=== PATIENT | female | born 1995 | race Caucasian/White ===

== ENCOUNTER → 2024-10-31 | Outpatient (CLI) | payer OTHER ==
[~2024-10-31] MED LIST: BIRTH CONTROL PO; ESCI20 PO; ISOTRETINOIN PO; Minocycline HC100 MG PO; Oxybutynin Chlo10 MG PO; Zofran Odt4 MG SL; Zofran4 MG PO
[2024-11-02 17:59] LABS: APTIMA MEDIA TYPE Urine; C. TRACHOMATIS BY TMA Negative (Negative); N. GONORRHOEAE BY TMA Negative (Negative); SPECIMEN SOURCE Urine
== END | disposition home or self-care (01) ==
LOC: LAB 09:00 → LAB SHORT 09:00
PROVIDERS: Family Medicine
DX: Z11.3 Encounter for screening for infections with a predominantly sexual mode of transmission (principal)
CPT/HCPCS: 87491; 87591

== ENCOUNTER → 2025-01-21 | Outpatient (CLI) | payer OTHER ==
[2025-01-21 20:02] LABS: Chlamydia Trachomatis Urine NOT DETECTED (NOT DETECT); Neisseria Gonorrhoea Urine NOT DETECTED (NOT DETECT)
== END ==
LOC: LAB 13:40 → LAB SHORT 13:40
PROVIDERS: Family Medicine
DX: Z34.81 Encounter for supervision of other normal pregnancy, first trimester (principal); Z3A.01 Less than 8 weeks gestation of pregnancy
CPT/HCPCS: 87086; 87491; 87591

== ENCOUNTER → 2025-07-23 | Outpatient (CLI) | payer OTHER | END | disposition home or self-care (01) | LOC: LAB SHORT 17:59 → LAB 17:59 | DX: R30.0 Dysuria (principal) | CPT/HCPCS: 87086 ==

== ENCOUNTER 2025-09-04 12:21 | Inpatient (IN) | payer OTHER ==
[~2025-09-04] VITALS: Ht 160 cm; Wt 112.0 kg
[2025-09-04] VITALS (24 sets, daily range): BP systolic 98–146; BP diastolic 56–110
[2025-09-04] MEDS ORDERED: OXYTOCIN/RINGER'S LACTATE 500 ML IV ONE (12:47)
[2025-09-04] MEDS ORDERED: Oxytocin 10 Unit / ML Vial IM PRN (12:50)
[2025-09-04] MEDS ORDERED: FentaNYL 2mcg/ml-Bup 0.1% Epd 250 ML EPI PRN (12:50)
[2025-09-04] MEDS ORDERED: OXYTOCIN/RINGER'S LACTATE 500 ML IV PRN (12:50)
[2025-09-04] MEDS ORDERED: ePHEDrine Sulfate 50 MG/ML 1ML Injection XX PRN (12:50)
[2025-09-04] MEDS ORDERED: Carboprost Tromethamine 250 MCG/ML 1ML Amp IM PRN ×2 (12:50→23:10)
[2025-09-04] MEDS ORDERED: Methylergonovine Maleate 0.2MG / ML 1ML Amp IM PRN ×2 (12:50→23:05)
[2025-09-04] MEDS ORDERED: Ondansetron HCl 2 MG / ML 2ML Vial IV PRN ×3 (12:50→23:10)
[2025-09-04] MEDS ORDERED: Tranexamic Acid 100 ML IV SCH (12:50)
[2025-09-04 13:02] LABS: BASOPHILS ABSOLUTE AUTO 0.04 K/mm3 (0.00-0.23); BASOPHILS PERCENT AUTO 0 % (0-2); EOSINOPHILS ABSOLUTE AUTO 0.19 K/mm3 (0.00-0.68); EOSINOPHILS PERCENT AUTO 2 % (0-6); Hematocrit 36.2 % (33.0-51.0); Hemoglobin 12.2 g/dL (11.5-16.0); IMMATURE GRAN ABSOLUTE AUTO 0.23 K/mm3 (0.00-0.10); IMMATURE GRAN PERCENT AUTO 2 % (0-1); LYMPHOCYTES ABSOLUTE AUTO 1.60 K/mm3 (0.84-5.20); LYMPHOCYTES PERCENT AUTO 13 % (21-46); MONOCYTES ABSOLUTE AUTO 1.10 K/mm3 (0.16-1.47); MONOCYTES PERCENT AUTO 9 % (4-13); Mean Corpuscular HGB Conc 33.7 g/dL (31.5-36.5); Mean Corpuscular Volume 84 fL (80-100); NEUTROPHILS ABSOLUTE AUTO 9.29 K/mm3 (1.96-9.15); NEUTROPHILS PERCENT AUTO 75 % (41-73); NRBC ABSOLUTE 0.00 K/mm3 (0.00-0.02); NRBC Auto 0.0 /100 WBC (0.0-0.2); Platelet Count 237 K/mm3 (150-400); RDW Coefficient Variation 13.3 % (11.7-14.2); RDW Standard Deviation 40.6 fL (35.1-46.3)
[2025-09-04] MEDS ORDERED: PRENATAL TABLE1 EAC2 PO (13:11)
[2025-09-04] MEDS ORDERED: PROP60 PO (13:11)
[2025-09-04] MEDS ORDERED: Tranexamic Acid 1000 MG/10 ML 10ML Vial (SDV) XX ONE (17:33)
[2025-09-04] MEDS ORDERED: Methylergonovine Maleate 0.2MG / ML 1ML Amp XX ONE (17:33)
[2025-09-04] MEDS ORDERED: Carboprost Tromethamine 250 MCG/ML 1ML Amp IM ONE (17:33)
[2025-09-04] MEDS ORDERED: CeFAZolin Sodium 2,000 MG in NS 100 ML IV SCH ×2 (20:05→20:50)
[2025-09-04] MEDS ORDERED: Citric Acid/Sodium Citrate 30 ML BTL PO SCH (20:10)
[2025-09-04] MEDS ORDERED: Metoclopramide HCl 5MG / ML 2ML Vial IV SCH (20:10)
[2025-09-04] MEDS ORDERED: EpiNEPhrine 1 MG/1 ML 1ML Vial ONE (21:17)
[2025-09-04] MEDS ORDERED: Lidocaine HCl 2% 10 ML SDA ONE ×2 (21:17→21:29)
[2025-09-04] MEDS ORDERED: Sodium Bicarb 8.4% 1 MEQ/ML 50 ML Vial ONE (21:20)
[2025-09-04] MEDS ORDERED: Oxytocin 10 Unit / ML Vial ONE (21:30)
[2025-09-04] MEDS ORDERED: Ketorolac Tromethamine 30mg Vial ONE (21:30)
[2025-09-04] MEDS ORDERED: Ondansetron HCl 2 MG / ML 2ML Vial ONE (22:03)
[2025-09-04] MEDS ORDERED: Phenylephrine HCl 100 MCG/ML-NS 10MLSYR (1MG/10ML) ONE (22:03)
[2025-09-04 22:10] LABS: PCO2 Cord - Arterial 82.1 mmHg (40-50); PO2 Cord - Arterial < 12.0 mmHg (16-20); pH Cord - Arterial 7.06 (7.28-7.35)
[2025-09-04 22:12] LABS: PCO2 Cord - Venous 51.4 mmHg (40-50); PO2 Cord - Venous 22.6 mmHg (28-32); pH Umbilical Cord - Venous 7.19 (7.26-7.35)
--- NOTE | 2025-09-04 22:13 | NUR ---
09/04/252212 Jesica Eddy DOPPLERED FHR 130'S IN OR. BABY GIRL BORN AT 2156. CORD BLOOD COLLECTED, CORD SEGMENT COLLECTED AND SENT WITH RT LAVON KEANE.
[2025-09-04] MEDS ORDERED: HYDROmorphone HCl/Pf 1MG SYR IV PRN (22:20)
[2025-09-04] MEDS ORDERED: FentaNYL Citrate 50 MCG/ML 2 ML Injection IV PRN ×3 (22:20)
[2025-09-04] MEDS ORDERED: Metoclopramide HCl 5MG / ML 2ML Vial IV PRN (22:20)
[2025-09-04] MEDS ORDERED: Magnesium Hydroxide Conc 10 ML UDC PO PRN (23:05)
[2025-09-05] VITALS (14 sets, daily range): BP systolic 102–133; BP diastolic 53–77
[2025-09-05] MEDS ORDERED: Ketorolac Tromethamine 30mg Vial IV SCH
[2025-09-05 06:29] LABS: BASOPHILS ABSOLUTE AUTO 0.04 K/mm3 (0.00-0.23); BASOPHILS PERCENT AUTO 0 % (0-2); EOSINOPHILS ABSOLUTE AUTO 0.03 K/mm3 (0.00-0.68); EOSINOPHILS PERCENT AUTO 0 % (0-6); Hematocrit 29.9 % (33.0-51.0); Hemoglobin 9.9 g/dL (11.5-16.0); IMMATURE GRAN ABSOLUTE AUTO 0.18 K/mm3 (0.00-0.10); IMMATURE GRAN PERCENT AUTO 1 % (0-1); LYMPHOCYTES ABSOLUTE AUTO 1.73 K/mm3 (0.84-5.20); LYMPHOCYTES PERCENT AUTO 11 % (21-46); MONOCYTES ABSOLUTE AUTO 1.33 K/mm3 (0.16-1.47); MONOCYTES PERCENT AUTO 9 % (4-13); Mean Corpuscular HGB Conc 33.1 g/dL (31.5-36.5); Mean Corpuscular Volume 86 fL (80-100); NEUTROPHILS ABSOLUTE AUTO 12.23 K/mm3 (1.96-9.15); NEUTROPHILS PERCENT AUTO 79 % (41-73); NRBC ABSOLUTE 0.00 K/mm3 (0.00-0.02); NRBC Auto 0.0 /100 WBC (0.0-0.2); Platelet Count 214 K/mm3 (150-400); RDW Coefficient Variation 13.6 % (11.7-14.2); RDW Standard Deviation 42.0 fL (35.1-46.3)
[2025-09-05] MEDS ORDERED: Prenatal Vit/FE Fumarate/FA 1 Tab PO SCH (09:00)
--- NOTE | 2025-09-05 09:07 | NUR ---
PT DISCUSSING EARLY DISCHARGE WITH DR. BAEZ. DISCUSSED PUMPING WITH PT AND THE IMPORTANCE OF PUMPING EVERY 2-3 HOURS TO PROTECT HER MILK SUPPLY WHILE BABY IS AWAY FROM HER. PT REPORTED SHE MAY BE READY TO BE DISCHARED TONIGHT OR EARLY IN THE MORNING TOMORROW. WILL KEEP PROVIDER UPDATED ON HOW PT IS FEELING.
--- NOTE | 2025-09-05 13:35 | NUR ---
MET WITH JOHN MCKEONHAND CANDLE DIPPER THIS MORNING. ENCOURAGED PT TO PUMP Q 2-3 HOURS TO GET HER MILK SUPPLY UP. JOHN GAVE PT EDUCATION ABOUT PUMPING/ HAND EXPRESSION. PUMP TAKEN TO PT AND PRESCRIPTION WRITTEN. PT AGREES.
--- NOTE | 2025-09-05 14:42 | NUR ---
Assumed care from Whitney Miller RN. Pt standing at bedside for first time post op. Pt reports feeling that she could ambulate to BR when needed. Abdias d/c'ajay. Pt then ambulated from EOB to BR for pericare then to brush teeth. Reports pain 5/10 in incision, states other RN medicated her around noon and denies additional pain medication or other needs at this time.
[2025-09-05] MEDS ORDERED: IBU800 M1 PO (14:49)
[2025-09-05] MEDS ORDERED: Percocet 5-3251 EACH PO (14:49)
[2025-09-05] MEDS ORDERED: Ketorolac Tromethamine 30mg Vial IM ONE (20:00)
[2025-09-05] MEDS ORDERED: Ketorolac Tromethamine 30mg Vial IV PRN (21:20)
[2025-09-06 06:12] VITALS: BP 118/58
[2025-09-06 07:53] VITALS: BP 107/58
--- NOTE | 2025-09-06 10:00 | NUR ---
PT PUMPING. DISCUSSING DISCHARGE, PT UNSURE IF SHE FEELS UP TO DISCHARGE TO HOME. DISCUSSED WITH DR MG. PT WILL LET RN KNOW LATER WHAT SHE DECIDES.
[2025-09-06 11:48] VITALS: BP 116/57
--- NOTE | 2025-09-06 13:50 | NUR ---
ASSUMED CARE OF PT FROM MIKE ENGLISH
--- NOTE | 2025-09-06 13:56 | NUR ---
REPORT TO MIKE HENRIQUEZ
[2025-09-06 18:22] VITALS: BP 111/58
[2025-09-06 20:02] VITALS: BP 115/70
[2025-09-06 23:39] VITALS: BP 116/70
[2025-09-07 03:20] VITALS: BP 116/61
--- NOTE | 2025-09-07 09:30 | NUR ---
DR MG NOTIFIED OF WBC ON
[2025-09-07 10:27] VITALS: BP 132/73
== END 2025-09-07 13:00 | disposition home or self-care (01) | DRG 787 ==
LOC: OBS 12:21 → BC 12:23 → OBS 12:46 → BC 19:34
PROVIDERS: ADMIT Family Medicine
PROC: 10H07YZ Insertion of Other Device into Products of Conception, Via Natural or Artificial Opening (ICD-10-PCS; 2025-09-04)
PROC: 10D00Z1 Extraction of Products of Conception, Low, Open Approach (ICD-10-PCS; principal; 2025-09-04 21:00)
DX: O48.0 Post-term pregnancy (principal); O99.354 Diseases of the nervous system complicating childbirth; Z37.0 Single live birth; Z3A.40 40 weeks gestation of pregnancy; O99.214 Obesity complicating childbirth; G90.A Postural orthostatic tachycardia syndrome [POTS]; O36.63X0 Maternal care for excessive fetal growth, third trimester, not applicable or unspecified; O34.13 Maternal care for benign tumor of corpus uteri, third trimester; D25.9 Leiomyoma of uterus, unspecified; O77.0 Labor and delivery complicated by meconium in amniotic fluid; O76 Abnormality in fetal heart rate and rhythm complicating labor and delivery
CPT/HCPCS: 36415; 51702; 59414; 82803; 85025; 86850; 86900; 86901; 86923; 99465; A9270; E1399; J0169; J1720; J1885; J2003; J2210; J2371; J2405; J2590; J7120